=== PATIENT | female | born 1950 | race African-American/Black ===

== ENCOUNTER 2020-08-20 11:43 | Emergency (ER) | payer OTHER ==
[~2020-08-20] VITALS: Ht 167.6 cm; Wt 93.0 kg
[2020-08-20] MEDS ORDERED: TRULICITY0.75 MG/0. SUBQ (11:52)
[2020-08-20] MEDS ORDERED: AMARYL4 MG PO (11:52)
[2020-08-20] MEDS ORDERED: LISINOPRIL20 MG PO (11:52)
[2020-08-20] MEDS ORDERED: METFORMIN HCL500 M3 PO (11:53)
[2020-08-20 12:54] LABS: ABSOLUTE NEUTROPHILS 3.3 thou/uL (1.4-8.2); BASOPHILS 1.1 % (0.0-2.0); EOSINOPHILS 1.8 % (0.0-3.0); HEMATOCRIT 38.7 % (37.0-47.0); HEMOGLOBIN 12.6 gm/dL (12.0-15.0); MCH 26.9 pg (26.0-34.0); MCHC 32.5 g/dL (28.0-37.0); MCV 82.9 fL (80.0-100.0); MONOCYTES 10.5 % (1.0-8.0); PLATELET COUNT 243 thou/uL (150-400); POLYS 56.6 % (36.0-66.0); RBC 4.66 mil/uL (4.20-5.00); WBC 5.8 thou/uL (4.0-11.0)
[2020-08-20 13:03] LABS: CALCIUM 9.5 mg/dL (8.5-10.1); CREATININE 1.1 mg/dL (0.6-1.0); POTASSIUM 4.1 mmol/L (3.5-5.1)
[2020-08-20 13:09] LABS: ALBUMIN 3.5 g/dL (3.4-5.0); TOTAL BILIRUBIN 0.5 mg/dL (0.2-1.0); TOTAL PROTEIN 7.8 g/dL (6.4-8.2)
[2020-08-20 13:21] LABS: URINE BILIRUBIN NEGATIVE (Negative); URINE BLOOD NEGATIVE (Negative); URINE CLARITY SL CLOUDY; URINE COLOR YELLOW; URINE GLUCOSE-RANDOM* 3+ (Negative); URINE KETONES NEGATIVE (Negative); URINE LEUKOCYTES-REFLEX TRACE (Negative); URINE NITRITE-REFLEX NEGATIVE (Negative); URINE PROTEIN (DIPSTICK) NEGATIVE (Negative); URINE UROBILINOGEN 0.2 E.U./dl (0.2-1.0)
[2020-08-20 14:17] VITALS: BP 135/83
== END 2020-08-20 14:18 | disposition home or self-care (01) ==
LOC: ER 11:43
PROVIDERS: Emergency Medicine
DX: R51.9 Headache, unspecified (principal); R19.7 Diarrhea, unspecified; E11.9 Type 2 diabetes mellitus without complications; Z79.899 Other long term (current) drug therapy

== ENCOUNTER 2020-08-22 19:06 | Emergency (ER) | payer MEDICARE ==
[~2020-08-22] VITALS: Ht 167.6 cm; Wt 93.0 kg
[~2020-08-22 19:06] MED LIST: AMARYL4 MG PO; LISINOPRIL20 MG PO; METFORMIN HCL500 M3 PO; TRULICITY0.75 MG/0. SUBQ
[2020-08-22 19:26] LABS: ABSOLUTE NEUTROPHILS 3.4 thou/uL (1.4-8.2); BASOPHILS 1.4 % (0.0-2.0); EOSINOPHILS 2.6 % (0.0-3.0); HEMATOCRIT 41.3 % (37.0-47.0); HEMOGLOBIN 13.3 gm/dL (12.0-15.0); MCHC 32.3 g/dL (28.0-37.0); MCV 83.5 fL (80.0-100.0); MONOCYTES 8.5 % (1.0-8.0); PLATELET COUNT 267 thou/uL (150-400); POLYS 46.5 % (36.0-66.0); RBC 4.95 mil/uL (4.20-5.00); RDW 14.4 % (10.5-14.5); WBC 7.4 thou/uL (4.0-11.0)
[2020-08-22 19:34] LABS: ANION GAP 12 mmol/L (7-16); BUN 14 mg/dL (7-18); CALCIUM 9.7 mg/dL (8.5-10.1); CHLORIDE 107 mmol/L (98-107); CO2 21 mmol/L (21-32); CREATININE 1.1 mg/dL (0.6-1.0); GLUCOSE 116 mg/dL (74-106); SODIUM 140 mmol/L (136-145)
[2020-08-22 19:41] LABS: APTT 24.2 Seconds (24.5-32.8); INR 0.99; PROTIME 10.8 Seconds (10.5-12.1)
[2020-08-22 19:51] LABS: ALBUMIN 3.6 g/dL (3.4-5.0); SGOT 15 U/L (15-37); SGPT 16 U/L (14-59); TOTAL BILIRUBIN 0.3 mg/dL (0.2-1.0); TROPONIN-I <0.06 ng/mL (<0.06)
[2020-08-22 20:04] LABS: TOTAL PROTEIN 8.1 g/dL (6.4-8.2)
[2020-08-22 21:24] VITALS: BP 146/84
--- NOTE | 2020-08-23 12:32 | EKG ---
[address] [place] [address] ELECTROCARDIOGRAM REPORT Name: SHANTELLE CALVO Room #: DEP [facility]#: [id number] Admission: 08/22/20 Attend Phys: Discharge: 08/22/20 Date of : 52 Report #: [id number] [facility] ED Test Date: 2020-08-22 Test Time: 19:17:16 Pat Name: SHANTELLE CALVO Department: Room: Gender: F Clinical Appeals Auditor: MARIVEL : 1950 Requested By: Ángel Urbano Order Number: [id number] MD: Arnav Levin Measurements Intervals [place] Rate: 90 P: 13 NM: 161 QRS: 15 QRSD: 84 T: 57 QT: 339 QTc: 415 Interpretive Statements Sinus rhythm Baseline wander in lead(s) I,II,aVR,V2 No previous ECG available for comparison Electronically Signed On 08-23-2020 12:32:08 CDT by Arnav Levin [email or web address] <ELECTRONICALLY SIGNED> By: Arnav Levin MD, [facility] 08/23/20 1232 1917 16 Arnav Levin MD, FACC /EPI
== END 2020-08-22 21:27 | disposition short-term general hospital (02) ==
LOC: ER 19:06
PROVIDERS: Emergency Medicine
DX: I63.89 Other cerebral infarction (principal); E11.9 Type 2 diabetes mellitus without complications; Z79.899 Other long term (current) drug therapy